=== PATIENT | female | born 1985 | race Caucasian/White ===

== ENCOUNTER 2020-03-06 20:22 | Inpatient (IN) | payer MEDICAID ==
[~2020-03-06] VITALS: Ht 154.9 cm; Wt 54.1 kg
[2020-03-06] MEDS ORDERED: ONDANSETRON HCL 4MG/2ML INJ IV ONE (20:45)
[2020-03-06 22:03] LABS: BASOPHILS % 0.3 % (0.0-2.0); EOSINOPHILS % 0.4 % (0.0-5.0); HEMATOCRIT. 43.6 % (36.0-48.0); LYMPHOCYTES % 15.8 % (20.0-50.0); MEAN CORPUSCULAR HEMOGLOBIN 31.1 pg (28.0-32.0); MEAN CORPUSCULAR VOLUME 90.2 fL (81.0-99.0); MEAN PLATELET VOLUME 7.6 fl (7.4-10.4); MONOCYTES % 5.2 % (2.0-8.0); NEUTROPHILS % 78.3 % (40.0-76.0); PLATELET 293 x1000/uL (130-400); RED BLOOD CELL COUNT 4.84 mill/uL (4.2-5.4); RED CELL DISTRIBUTION WIDTH 12.5 % (11.6-14.6)
[2020-03-06 22:08] LABS: CHLORIDE 105 mEq/L (98-107)
[2020-03-06 22:12] LABS: ETHANOL BLOOD < 10 mg/dL
[2020-03-07 00:04] LABS: *BARBITURATES SCREEN URINE NEGATIVE (NEGATIVE); *BENZODIAZEPINES SCREEN URINE NEGATIVE (NEGATIVE); *COCAINE SCREEN URINE NEGATIVE (NEGATIVE)
[2020-03-07 00:05] LABS: METHADONE URINE SCREEN NEGATIVE (NEGATIVE); OPIATES URINE SCREEN NEGATIVE (NEGATIVE); PHENCYCLIDINE URINE SCREEN NEGATIVE (NEGATIVE)
[2020-03-07 00:07] LABS: *AMPHETAMINES SCREEN URINE PRESUMTIVE POSITIVE (NEGATIVE); CANNABINOID URINE SCREEN PRESUMTIVE POSITIVE (NEGATIVE)
[2020-03-07] MEDS ORDERED: SODIUM CHLORIDE 0.9% 1,000 ML IV ONE (04:05)
[2020-03-07] MEDS ORDERED: LORAZEPAM 2MG/ML CPJ IV ONE (04:15)
[2020-03-07] MEDS ORDERED: MVI, ADULT NO.1 10 ML, FOLIC ACID 1 MG, THIAMINE HCL 100 MG in SODIUM CHLORIDE 0.9% 1,0... IV SCH ×4 (15:00)
[2020-03-07] MEDS ORDERED: ONDANSETRON HCL 4MG/2ML INJ IV PRN (15:00)
[2020-03-07] MEDS ORDERED: MAGNESIUM/ALUMINUM HYDROXIDE/SIMETHICONE 30ML UDC PO PRN (15:00)
[2020-03-07] MEDS ORDERED: ACETAMINOPHEN 325MG TABLET PO PRN (15:00)
[2020-03-07] MEDS ORDERED: DIPHENHYDRAMINE 50MG/ML VIAL IV PRN (15:00)
[2020-03-07 20:00] VITALS: BP 93/57
[2020-03-08 04:00] VITALS: BP 125/59
[2020-03-08 08:00] VITALS: BP_SYST 85; BP_SYST 86; BP_DIAS 46; BP_DIAS 52; BP_DIAS 62
[2020-03-08 09:14] VITALS: BP 91/47
[2020-03-08 12:00] VITALS: BP 89/49
[2020-03-08 16:00] VITALS: BP 84/56
[2020-03-08] MEDS: SODIUM CHLORIDE 0.9% 1,000 ML IV SCH (16:49)
[2020-03-08 18:15] LABS: CLARITY URINE CLOUDY (CLEAR); COLOR URINE YELLOW (YELLOW); KETONES URINE NEGATIVE (NEGATIVE); LEUKOCYTE ESTERASE URINE NEGATIVE (NEGATIVE); NITRITE URINE NEGATIVE (NEGATIVE); OCCULT BLOOD URINE NEGATIVE (NEGATIVE); PROTEIN URINE NEGATIVE (NEGATIVE); SPECIFIC GRAVITY URINE 1.016 (1.005-1.030)
[2020-03-08 20:00] VITALS: BP 94/58
[2020-03-09] VITALS: BP 87/59
[2020-03-09] MEDS: SODIUM CHLORIDE 0.9% 1,000 ML IV SCH ×2 (01:36→11:30)
[2020-03-09] MEDS: ACETAMINOPHEN 325MG TABLET PO PRN ×2 (01:45→12:02)
[2020-03-09 04:00] VITALS: BP 101/62
[2020-03-09 08:00] VITALS: BP 108/60
[2020-03-09 08:13] LABS: BASOPHILS % 0.3 % (0.0-2.0); EOSINOPHILS % 1.3 % (0.0-5.0); HEMATOCRIT. 35.6 % (36.0-48.0); HEMOGLOBIN. 12.4 g/dL (12.0-16.0); LYMPHOCYTES % 30.4 % (20.0-50.0); MEAN CORPUSCULAR HEMOGLOBIN 31.3 pg (28.0-32.0); MEAN PLATELET VOLUME 8.8 fl (7.4-10.4); MONOCYTES % 6.5 % (2.0-8.0); NEUTROPHILS % 61.5 % (40.0-76.0); PLATELET 235 x1000/uL (130-400); RED BLOOD CELL COUNT 3.96 mill/uL (4.2-5.4); RED CELL DISTRIBUTION WIDTH 12.4 % (11.6-14.6)
[2020-03-09 08:18] LABS: CHLORIDE 110 mEq/L (98-107)
[2020-03-09 12:00] VITALS: BP 109/68
[2020-03-09 14:16] VITALS: BP 109/68
== END 2020-03-09 17:14 | disposition home or self-care (01) | DRG 812 ==
LOC: ER 20:22 → EDBD 20:22 → EDBEDREQ 03-07 05:58 → EDBEDREQTM 03-07 05:58 → ENRESERV 03-07 21:41 → 5WST 03-07 22:51
PROVIDERS: ADMIT Internal Medicine; ATTEND Internal Medicine
DX: T43.621A Poisoning by amphetamines, accidental (unintentional), initial encounter (principal); G92 Toxic encephalopathy; I95.9 Hypotension, unspecified; T40.7X1A Poisoning by cannabis (derivatives), accidental (unintentional), initial encounter; T43.641A Poisoning by ecstasy, accidental (unintentional), initial encounter; Z88.0 Allergy status to penicillin
CPT/HCPCS: 36415; 80053; 80305; 80320; 81003; 83735; 84100; 85025; 93005; 96361; 96365; 96375; 97116; 97162; 99285; J2060; J2405; J3411; J3490; J7030; G0480

== ENCOUNTER 2020-08-12 19:48 | Emergency (ER) | payer MEDICAID ==
[~2020-08-12] VITALS: Ht 154.9 cm; Wt 54.5 kg
[2020-08-12] MEDS ORDERED: ONDANSETRON 4MG ODT PO STA (20:27)
[2020-08-12] MEDS ORDERED: IBUPROFEN 600MG TABLET PO STA (20:27)
[2020-08-12 21:08] LABS: CLARITY URINE CLOUDY (CLEAR); COLOR URINE YELLOW (YELLOW); KETONES URINE TRACE (NEGATIVE); LEUKOCYTE ESTERASE URINE NEGATIVE (NEGATIVE); NITRITE URINE NEGATIVE (NEGATIVE); OCCULT BLOOD URINE 1+ (NEGATIVE); PH URINE 5.5 (4.5-8.0); PROTEIN URINE TRACE (NEGATIVE); SPECIFIC GRAVITY URINE 1.031 (1.005-1.030)
[2020-08-12 22:01] VITALS: BP 113/81
== END 2020-08-12 22:03 | disposition home or self-care (01) ==
LOC: ER 19:48
DX: K52.9 Noninfective gastroenteritis and colitis, unspecified (principal); B34.8 Other viral infections of unspecified site; Z88.0 Allergy status to penicillin
CPT/HCPCS: 81003; 81025; 99283; Q0162

== ENCOUNTER 2021-01-05 13:50 | Emergency (ER) | payer MEDICAID ==
[~2021-01-05] VITALS: Ht 154.9 cm; Wt 53.0 kg
[2021-01-05] MEDS ORDERED: AMOXICILLIN/POTASSIUM CLAVULANATE 500/125MG TAB PO ONE (15:30)
[2021-01-05] MEDS ORDERED: IBUPROFEN 400MG TABLET PO ONE (15:30)
[2021-01-05] MEDS ORDERED: AMOX-494 MT (16:25)
[2021-01-05 17:05] VITALS: BP 120/70
== END 2021-01-05 17:06 | disposition home or self-care (01) ==
LOC: ER 13:50
DX: S60.419A Abrasion of unspecified finger, initial encounter (principal); W55.03XA Scratched by cat, initial encounter; Y93.9 Activity, unspecified; Y92.9 Unspecified place or not applicable; Z88.0 Allergy status to penicillin
CPT/HCPCS: 99283

== ENCOUNTER 2021-04-30 17:30 | Emergency (ER) | payer MEDICAID ==
[~2021-04-30] VITALS: Ht 157.5 cm; Wt 57.0 kg
[~2021-04-30 17:30] MED LIST: AMOX-494 MT
[2021-04-30] MEDS ORDERED: IBUPROFEN 600MG TABLET PO ONE (21:15)
[2021-04-30 22:43] LABS: BASOPHILS % 0.3 % (0.0-2.0); EOSINOPHILS % 1.6 % (0.0-5.0); HEMATOCRIT. 38.5 % (36.0-48.0); HEMOGLOBIN. 13.5 g/dL (12.0-16.0); MEAN CORPUSCULAR HEMOGLOBIN 30.9 pg (28.0-32.0); MEAN CORPUSCULAR VOLUME 87.9 fL (81.0-99.0); MEAN PLATELET VOLUME 7.6 fl (7.4-10.4); MONOCYTES % 8.4 % (2.0-8.0); NEUTROPHILS % 65.7 % (40.0-76.0); PLATELET 295 x1000/uL (130-400); RED BLOOD CELL COUNT 4.38 mill/uL (4.2-5.4); RED CELL DISTRIBUTION WIDTH 12.9 % (11.6-14.6)
[2021-04-30 22:46] LABS: CHLORIDE 106 mEq/L (98-107)
[2021-04-30 22:47] LABS: CLARITY URINE CLEAR (CLEAR); COLOR URINE YELLOW (YELLOW); KETONES URINE 1+ (NEGATIVE); LEUKOCYTE ESTERASE URINE NEGATIVE (NEGATIVE); NITRITE URINE NEGATIVE (NEGATIVE); OCCULT BLOOD URINE NEGATIVE (NEGATIVE); PROTEIN URINE NEGATIVE (NEGATIVE); SPECIFIC GRAVITY URINE 1.029 (1.005-1.030)
[2021-04-30 22:49] LABS: HCG SCREEN NEGATIVE
[2021-05-01 00:50] VITALS: BP 115/66
== END 2021-05-01 01:51 | disposition home or self-care (01) ==
LOC: ER 17:30
DX: D25.9 Leiomyoma of uterus, unspecified (principal); N83.209 Unspecified ovarian cyst, unspecified side; Z97.5 Presence of (intrauterine) contraceptive device; Z88.0 Allergy status to penicillin
CPT/HCPCS: 36415; 76830; 76856; 80053; 81003; 81025; 84703; 85025; 99284

== ENCOUNTER 2021-11-13 21:28 | Emergency (ER) | payer MEDICAID ==
[~2021-11-13] VITALS: Ht 157.5 cm; Wt 55.0 kg
[2021-11-13 21:42] VITALS: BP 106/77
== END 2021-11-14 05:44 | disposition home or self-care (01) ==
LOC: ER 21:28
DX: S00.01XA Abrasion of scalp, initial encounter (principal); M79.642 Pain in left hand; Z88.0 Allergy status to penicillin; Y04.0XXA Assault by unarmed brawl or fight, initial encounter; Y93.89 Activity, other specified; Y92.89 Other specified places as the place of occurrence of the external cause
CPT/HCPCS: 71045; 72128; 73130; 81025; 99284

== ENCOUNTER 2022-11-24 16:15 | Emergency (ER) | payer MEDICAID ==
[~2022-11-24] VITALS: Ht 157.5 cm; Wt 55.0 kg
[2022-11-24 16:30] VITALS: BP 114/74
[2022-11-24] MEDS ORDERED: NAPR-1176 MT (17:15)
[2022-11-24] MEDS ORDERED: CYCL5TAB MT (17:15)
== END 2022-11-24 20:06 | disposition home or self-care (01) ==
LOC: ER 17:30
DX: S13.8XXA Sprain of joints and ligaments of other parts of neck, initial encounter (principal); Z88.0 Allergy status to penicillin; V43.62XA Car passenger injured in collision with other type car in traffic accident, initial encounter; Y93.89 Activity, other specified; Y92.488 Other paved roadways as the place of occurrence of the external cause
CPT/HCPCS: 99283

== ENCOUNTER 2023-02-15 01:42 | Emergency (ER) | payer MEDICAID ==
[~2023-02-15] VITALS: Ht 157.5 cm; Wt 49.4 kg
[~2023-02-15 01:42] MED LIST changes: +CYCL5TAB MT; +NAPR-1176 MT
[2023-02-15 01:57] VITALS: BP 116/85
[2023-02-15] MEDS ORDERED: HYDR-4001 MT (03:28)
== END 2023-02-15 03:45 | disposition home or self-care (01) ==
LOC: ER 01:42
DX: S63.601A Unspecified sprain of right thumb, initial encounter (principal); Z88.0 Allergy status to penicillin; W23.0XXA Caught, crushed, jammed, or pinched between moving objects, initial encounter; Y93.89 Activity, other specified; Y92.89 Other specified places as the place of occurrence of the external cause; Y99.8 Other external cause status
CPT/HCPCS: 29125; 73130; 81025; 99283

== ENCOUNTER 2023-05-23 00:29 | Emergency (ER) | payer MEDICAID ==
[~2023-05-23] VITALS: Ht 154.9 cm; Wt 54.3 kg
[~2023-05-23 00:29] MED LIST changes: +HYDR-4001 MT
[2023-05-23 00:55] VITALS: BP 123/79; PULSE 112; RESP 14; TEMP 98.9; O2SAT 100
== END 2023-05-23 03:21 | disposition left against medical advice (07) ==
LOC: ER 00:29
DX: Z53.21 Procedure and treatment not carried out due to patient leaving prior to being seen by health care provider (principal); Z88.0 Allergy status to penicillin
CPT/HCPCS: 81025; 99281

== ENCOUNTER 2023-08-09 19:03 | Emergency (ER) | payer MEDICAID ==
[~2023-08-09] VITALS: Ht 157.5 cm; Wt 52.0 kg
[2023-08-09 19:53] VITALS: BP 112/79; O2SAT 99
[2023-08-09 20:44] LABS: CLARITY URINE CLOUDY (CLEAR); COLOR URINE DARK YELLOW (YELLOW); GLUCOSE URINE NEGATIVE (NEGATIVE); KETONES URINE TRACE (NEGATIVE); LEUKOCYTE ESTERASE URINE NEGATIVE (NEGATIVE); NITRITE URINE NEGATIVE (NEGATIVE); OCCULT BLOOD URINE 3+ (NEGATIVE); PROTEIN URINE 1+ (NEGATIVE); SPECIFIC GRAVITY URINE 1.032 (1.005-1.030)
[2023-08-09 20:47] LABS: YEAST URINE NONE SEEN
[2023-08-09 21:04] LABS: BACTERIA URINE 2+; RBC URINE 15-25 /hpf (0-2); SQUAMOUS EPITHELIAL CELL URINE 2+ /lpf (RARE/1+); WBC URINE 0-2 /hpf (0-2)
[2023-08-09 22:18] LABS: BASOPHILS % 0.4 % (0.0-2.0); EOSINOPHILS % 0.5 % (0.0-5.0); HEMOGLOBIN. 15.7 g/dL (12.0-16.0); LYMPHOCYTES % 29.9 % (20.0-50.0); MEAN CORPUSCULAR HEMOGLOBIN 30.7 pg (28.0-32.0); MEAN CORPUSCULAR HGB CONC 34.1 g/dL (31.0-37.0); MEAN CORPUSCULAR VOLUME 90.1 fL (81.0-99.0); MEAN PLATELET VOLUME 7.7 fl (7.4-10.4); NEUTROPHILS % 61.2 % (40.0-76.0); PLATELET 349 x1000/uL (130-400); RED CELL DISTRIBUTION WIDTH 13.3 % (11.6-14.6); WHITE BLOOD COUNT 8.4 x1000/uL (4.5-11.0)
[2023-08-09 22:31] LABS: CHLORIDE 105 mEq/L (98-107); INDEX HEMOLYSI 1 (1-3); INDEX ICTERIC 1 (1-4); INDEX LIPEMIC 1 (1-3); POTASSIUM 3.8 mEq/L (3.5-5.1); SODIUM 136 mEq/L (136-145)
[2023-08-09 22:39] LABS: ALANINE AMINOTRANSFERASE 26 IU/L (13-61); ASPARTATE AMINOTRANSFERASE 16 IU/L (15-37); BILIRUBIN TOTAL 0.8 mg/dL (0.1-1.0); CALCIUM 9.3 mg/dL (8.5-10.1); CARBON DIOXIDE 30 mEq/L (21-32); CREATININE 0.6 mg/dL (0.6-1.3); GLUCOSE 100 mg/dL (70-105); PROTEIN TOTAL 7.8 g/dL (6.0-8.3); UREA NITROGEN BLOOD 13 mg/dL (7-21)
[2023-08-09 23:50] VITALS: PULSE 98; RESP 18; TEMP 98.3
== END 2023-08-09 23:52 | disposition home or self-care (01) ==
LOC: ER 19:03
DX: D25.9 Leiomyoma of uterus, unspecified (principal); N92.0 Excessive and frequent menstruation with regular cycle; Z88.0 Allergy status to penicillin
CPT/HCPCS: 36415; 80053; 81003; 81025; 85025; 86850; 86900; 99283

== ENCOUNTER 2023-12-07 00:21 | Emergency (ER) | payer MEDICAID ==
[~2023-12-07] VITALS: Ht 157.5 cm; Wt 48.6 kg
[2023-12-07 01:32] VITALS: BP 124/82; PULSE 110; RESP 18; TEMP 98.6; O2SAT 98
== END 2023-12-07 06:49 | disposition left against medical advice (07) ==
LOC: ER 00:46
DX: M54.2 Cervicalgia (principal); M51.9 Unspecified thoracic, thoracolumbar and lumbosacral intervertebral disc disorder; Z53.21 Procedure and treatment not carried out due to patient leaving prior to being seen by health care provider
CPT/HCPCS: 93005; 99281